=== PATIENT | male | born 1960 | race African-American/Black ===

== ENCOUNTER 2024-02-02 10:54 | Emergency (ER) | payer MEDICAID ==
[~2024-02-02] VITALS: Ht 177.8 cm; Wt 106.8 kg
[2024-02-02 11:18] VITALS: BP 160/96; PULSE 80; RESP 18; O2SAT 98
[2024-02-02 12:19] VITALS: TEMP 97.8
== END 2024-02-02 12:21 | disposition home or self-care (01) ==
LOC: ER 10:54
DX: Z96.60 Presence of unspecified orthopedic joint implant (principal); T84.84XA Pain due to internal orthopedic prosthetic devices, implants and grafts, initial encounter; G89.18 Other acute postprocedural pain
CPT/HCPCS: 73630; 99283